=== PATIENT | female | born 1990 | race Hispanic/Latino ===

== ENCOUNTER 2019-08-06 21:32 | Day surgery (SDC) | payer OTHER ==
[2019-08-06 22:08] VITALS: BP 99/56; TEMP 99; BMI 23.8
--- NOTE | 2019-08-06 22:31 | PDOC.FPROB ---
FMR OB H&P: HPI - History of Present Illness Chief Complaint: cramping Indentification: 29 yo at 19.4 here for camping History of Present Illness: 29 yo at 19.4 weeks here for cramping starting two days ago. Was seen at [facility] in which she had VD, VP3 done showing +BV (called [facility] to confirm). She started taking flagyl but had cramping associated with it so stopped after two tabs. No VB, LOF. Still presistent yellow vaginal discharge. Also c/o dysuria but no fevers or chills. 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 - Surgical History Sx History: Left hand surgery - Social History Social History: Denies TAD - Family History Family History: Non contributory FMR OB H&P: Medications - Current Home Medications: Medication Instructions Recorded Confirmed Type metroNIDAZOLE [Metronidazole] 08/06/19 History Allergies/Adverse Reactions: Allergies Allergy/AdvReac Type Severity Reaction Status Date / Time No Known Allergies Allergy Verified 08/06/19 22:08 FMR OB H&P: ROS - Review of Systems General: denies: fever/chills, weight/appetite/sleep changes ENT: denies: ear pain, ringing in ears Cardiovascular: denies: chest pain Gastrointestinal: reports: abdominal pain, cramping. denies: nausea, vomiting, diarrhea, constipation, bright red blood, dark black tarry stools Genitourinary (Female): reports: vaginal discharge. denies: vaginal pain, vaginal bleeding, contractions, vaginal pressure Musculoskeletal: denies: pain, stiffness Neurologic: denies: numbness, weakness Endocrine: denies: cold intolerance, heat intolerance Hematologic/Lymphatic: denies: prolonged or excessive bleeding Psychological: denies: depression, anxiety FMR OB H&P: Vital Signs - Maternal Vital signs: Vital Signs - First Documented Temp Pulse Resp BP Pulse Ox 99.0 F 60 12 99/56 L 100 08/06/19 22:05 08/06/19 22:05 08/06/19 22:05 08/06/19 22:05 08/06/19 22:05 FMR OB H&P: Physical Exam - Physical Exam General: NAD, awake, alert and oriented HEENT: normocephalic and atraumatic, PERRLA Neck: supple, trachea midline Heart: RRR, normal S1/S2, no murmurs/rubs/gallops General: CTAB, no respiratory distress, good air movement Abdomen: soft Deviation from normal: suprapubic tenderness to palpation Musculoskeletal: pulses present, FROM in all four extremities Skin: good tugor, capillary refill <2 seconds Psychiatric: good judgement and insight, normal mood and affect FMR OB H&P: A/P - Problem List (1) with 19 completed weeks gestation Current Visit: Yes Status: Acute Code(s): Z3A.19 - 19 WEEKS GESTATION OF (2) Bacterial vaginitis Current Visit: Yes Status: Acute Code(s): N76.0 - ACUTE VAGINITIS; B96.89 - OTH BACTERIAL AGENTS THE CAUSE OF DISEASES CLASSD [id number] Discussion: Date/Time: 08/06/190 1. at 19.4 weeks gestation -FHT 150s -Transabdominal U/S to assess cervical length -Will continue tx of BV, can consider switch to clindamycin - 2. Bacterial Vaginitis -+BV per [facility] labs on 08/04/19, pending fax records -Continue flagyl tx to completion with MANPREET outpt 3. Dysuria -UA to r/o UTI This H&P was discussed with Dr. Brady who agree with the above documentation and plan.
[2019-08-06 22:53] LABS: Bacteria/HPF None Seen HPF (None Seen); Bilirubin Negative (Negative); Blood, Urine Trace (Negative); Clarity Clear (Clear); Glucose, Urine (Dipstick) Normal (Negative); Leukocyte Negative Leu/uL (Negative); Mucous/LPF 2+ LPF (<2+); Nitrite Negative (Negative); Protein, Urine (Dipstick) Negative (Neg-Trace); RBC/HPF 0-3 HPF (0-3); Squamous Epithelial 0-3 HPF (0-3); Urobilinogen Normal mg/dL (Less than 2); WBC/HPF 0-3 HPF (0-3)
[2019-08-06 22:54] LABS: Urine Culture Reflex No No
--- NOTE | 2019-08-06 22:55 | PDOC.BPN ---
- Brief Progress Note Cervical length 5.26cm Discharge white, serous, fish smell -noted on exam UA neg for infection Discussed that cramping likely from BV, had only taken one day of medication, needs more time to work. After discussion would prefer to try different medication. Sent for clindamycin, discussed possible AE. Discussed warning precautions and following up at [facility] next week. Sent medication, no further questions
--- NOTE | 2019-08-06 23:14 | ULT ---
TRANSABDOMINAL PELVIC ULTRASOUND, LIMITED: 08/06/19 HISTORY: Cervical length. Abdominal cramping at 19 weeks. FINDINGS/IMPRESSION: A single live intrauterine gestation is seen with a heart rate of 145 beats per minute. The cer vical length measures 5.3 cm. POS: OFF
== END 2019-08-06 23:15 | disposition home or self-care (01) ==
LOC: L&D/OP 21:32
PROVIDERS: ATTEND Obstetrics & Gynecology
DX: O23.592 Infection of other part of genital tract in pregnancy, second trimester (principal); N76.0 Acute vaginitis; B96.89 Other specified bacterial agents as the cause of diseases classified elsewhere; Z3A.19 19 weeks gestation of pregnancy
CPT/HCPCS: 76815; 81001

== ENCOUNTER 2019-12-22 10:17 | Outpatient (CLI) | payer OTHER ==
[2019-12-23 12:11] LABS: SARS-CoV-2 MS2 Positive; SARS-CoV-2 N Gene Positive; SARS-CoV-2 S Gene Positive; SARS-CoV-2 orf1ab Positive
== END 2019-12-22 10:18 | disposition home or self-care (01) ==
LOC: SCSLAB 10:17
PROVIDERS: ATTEND Emergency Medicine
DX: Z01.812 Encounter for preprocedural laboratory examination (principal); Z11.59 Encounter for screening for other viral diseases
CPT/HCPCS: 87635; U0003

== ENCOUNTER 2019-12-30 15:43 | Inpatient (IN) | payer SELFPAY, OTHER ==
[2019-12-30 16:31] VITALS: BMI 24.7
[2019-12-30] MEDS ORDERED: Promethazine HCl 25 MG/ML VIAL IM PRN (17:59)
[2019-12-30] MEDS ORDERED: Diphenoxylate HCl/Atropine Tablet PO PRN ×2 (17:59)
[2019-12-30] MEDS ORDERED: Lidocaine 1% (PF) 30 ML VIAL SC PRN (17:59)
[2019-12-30] MEDS ORDERED: Acetaminophen 500 MG TAB PO PRN (17:59)
[2019-12-30] MEDS ORDERED: Misoprostol 200 MCG TAB PR PRN (17:59)
[2019-12-30] MEDS ORDERED: hydrALAZINE 20 MG/ML VIAL SLOW IVP PRN (17:59)
[2019-12-30] MEDS ORDERED: Methylergonovine 0.2 MG/ML VIAL IM PRN (17:59)
[2019-12-30] MEDS ORDERED: Butorphanol Tartrate 1 MG/ML VIAL SLOW IVP PRN (17:59)
[2019-12-30] MEDS ORDERED: Ibuprofen 800 MG TAB PO PRN (17:59)
[2019-12-30] MEDS ORDERED: Carboprost 250 MCG/ML AMP IM PRN (17:59)
--- NOTE | 2019-12-30 18:27 | PDOC.FPROB ---
FMR OB H&P: HPI - History of Present Illness Chief Complaint: Contractions History of Present Illness: Patient is a 29 year old at 40.3 WGA by LMP confirmed by 8.3 week sonogram with an KRISTIE of 12/27/2019. Patient was schedule for eIOL on 12/31/2019 but presented with contractions every 5 minutes in triage. She reported scant vaginal bleeding and + movement but no leakage of fluid or abnormal vaginal discharge. She was found to be 4/60/-2 with intact membranes. This has been complicated by anemia of and BV/yeast infection s/ p treatment. Patient is COVID positive. Patient reports cough and SOB 2 weeks ago but states she has been symptom free for 1 week. There was adequate care at clinic. Primary Care Physician: KARL Guo FMR OB H&P: Current - Care : 3 Para: 1 Gestational age: 40.3 Due date: 12/27/2019 Dating Criteria: LMP, confirmed by 8.3 sono Total weight gain: Unknown Course/Complications: Anemia of , BV/yeast s/p treatment, COVID positive - OB Labs Blood type: O RH: positive Antibody Screen: negative HIV: negative RPR: negative HepBsAg: negative Rubella: immune Quad screen: negative Urine drug screen: not done Gonorrhea: negative Chlamydia: negative Pap Smear: Negative 1 hour gtt: 97 FMR OB H&P: History - Past Medical History PMH: Childhood asthma. GERD. - OB History OB History: . Hx SAB at 6 weeks. Previous vaginal delivery at term with second degree lac. 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 [place] at 16 years old. Menstruation Q24 days, lasts 4 days. No history of STIs. - Surgical History Sx History: None - Social History Social History: No tobacco or ETOH use. - Family History Family History: No significant FH. FMR OB H&P: Medications - Current Home Medications: Medication Instructions Recorded Confirmed Type 105/Iron/Folic AC/Dha 1 tab PO DAILY 12/30/19 12/30/19 History [Prena1 True Combo Pack] Allergies/Adverse Reactions: Allergies Allergy/AdvReac Type Severity Reaction Status Date / Time No Known Allergies Allergy Verified 12/30/19 16:22 FMR OB H&P: ROS - Review of Systems General: denies: fever/chills, night sweats, fatigue Eyes: denies: eye pain, vision changes ENT: denies: nasal congestion, rhinorrhea, sore throat Cardiovascular: denies: chest pain, palpitation Respiratory: denies: cough, congestion, shortness of breath Gastrointestinal: reports: abdominal pain (with contractions). denies: nausea, vomiting Genitourinary (Female): reports: vaginal bleeding (- scant), contractions. denies: dysuria, hematuria, vaginal discharge Musculoskeletal: denies: pain, redness Neurologic: denies: numbness, syncope, headache Integumentary: denies: itching, rash Breast: denies: lumps, bumps Endocrine: denies: cold intolerance, heat intolerance Hematologic/Lymphatic: denies: prolonged or excessive bleeding, enlarged lymph nodes Psychological: denies: depression, anxiety FMR OB H&P: Vital Signs - Maternal Vital signs: Vital Signs - First Documented Temp Pulse Resp BP Pulse Ox 98.4 F 65 18 108/64 100 12/30/19 16:21 12/30/19 16:21 12/30/19 16:21 12/30/19 16:21 12/30/19 16:21 - Heart Tones Baseline: 130 Variability: moderate Acceleration: present Deceleration: absent Category: category 1 [place] contractions every: 5 minutes FMR OB H&P: Physical Exam - Physical Exam General: NAD HEENT: normocephalic and atraumatic, PERRLA Neck: supple, trachea midline Chest: non-tender to palpation, no lesions Abdomen: gravid, non-tender Musculoskeletal: FROM in all four extremities, no misalignment/asymmetry Neurological: cranial nerves II through XII intact, sensation to pain,touch and proprioception grossly normal Skin: no rash, good tugor Lymphatic: no unusual bruising or bleeding, no purpura Psychiatric: good judgement and insight, normal mood and affect - Pelvic Exam SVE: /-2 Membranes: Intact Presentation: Vertex FMR OB H&P: A/P - Problem List (1) Anemia in preg-unspec Current Visit: Yes Status: Acute Code(s): O99.019 - ANEMIA COMPLICATING , UNSPECIFIED TRIMESTER (2) GERD (gastroesophageal reflux disease) Current Visit: Yes Status: Acute Code(s): K21.9 - GASTRO-ESOPHAGEAL REFLUX DISEASE WITHOUT ESOPHAGITIS (3) Asthma Current Visit: Yes Status: Acute Code(s): J45.909 - UNSPECIFIED ASTHMA, UNCOMPLICATED (4) Current Visit: Yes Status: Acute (5) COVID-19 Current Visit: Yes Status: Acute Code(s): U07.1 - COVID-19 Disposition: 1. [place] intrauterine . GBS negative. Cervical check: /-2. Contractions every 5 minutes. Category 1 strip. Currently in latent labor. -Continue monitoring -Check for progression in 4 hours -No intervention at this time 2. COVID positive Patient is asymptomatic. Afebrile. -Respiratory precautions in place 3. Anemia of H/H was 11.9/33.6. Patient takes vitamin daily. -Stable 4. GERD Patient reports no symptoms. No medication taken routinely. -Stable 5. Childhood asthma Patient denies SOB or wheezing. She does not use an inhaler. -Stable Discussion: Date/Time: 12/30/191822 This H&P was discussed with [Baron Dalton] and [Layton Mendosa] who agree with the above documentation and plan. I, Baron Dalton DO, have examined the pt and agree with the above history and plan as outlined by the accounting intern resident. Addendum - Attending - Attending Attestation Date/Time: 12/30/192306 I personally evaluated the patient and discussed the management with Dr. Márquez/Sha I agree with the History, Examination, Assessment and Plan documented above with any addition or exceptions noted below. COVID screen + presents in labor. GBS negative. Contact/respiratory precautions in place. Continue expectant management.
[2019-12-30 18:49] LABS: Hemoglobin 12.1 g/dL (12.0-16.0); Mean Corpuscular HGB CONC 34.7 g/dL (32.0-36.0); Mean Corpuscular Hemoglobin 31.2 pg (27.0-31.0); Mean Corpuscular Volume 89.8 fL (78.0-98.0); Mean Platelet Volume 7.9 fL (7.4-10.4); Platelet Count 232 thou/uL (130-400); RBC Distribution Width 12.1 % (11.5-14.5); Red Blood Cell (RBC) Count 3.87 mill/uL (4.20-5.40); White Blood Cell (WBC) Count 9.7 thou/uL (4.8-10.8)
[2019-12-30 19:26] LABS: HBSAg Index 0.17 S/CO (0-0.99); Hep B Surf Ag Non-Reactive S/CO (NonReactive); Syphilis Antibody Nonreactive (Nonreactive); Syphilis Antibody Index 0.03 S/CO (<1.00 Non-Reactive)
[2019-12-30] MEDS ORDERED: Fentanyl 4 mcg/Bup 0.1% Cadd 100 ML ONE (20:52)
[2019-12-30] MEDS: Lactated Ringer's 1,000 ML IV SCH (21:09)
--- NOTE | 2019-12-30 21:58 | PDOC.LDPN ---
Labor & Delivery Progress Note - Subjective Subjective: painful contractions - Objective Vital signs reviewed and normal: yes General: NAD Dilation: 6/60% Station: -2 FHT: category 1 [place] contractions every: 4-5 Procedures: epidural - Assessment (1) Anemia in preg-unspec Code(s): O99.019 - ANEMIA COMPLICATING , UNSPECIFIED TRIMESTER Current Visit: Yes Status: Acute (2) GERD (gastroesophageal reflux disease) Code(s): K21.9 - GASTRO-ESOPHAGEAL REFLUX DISEASE WITHOUT ESOPHAGITIS Current Visit: Yes Status: Acute (3) Asthma Code(s): J45.909 - UNSPECIFIED ASTHMA, UNCOMPLICATED Current Visit: Yes Status: Acute (4) Current Visit: Yes Status: Acute (5) COVID-19 Code(s): U07.1 - COVID-19 Current Visit: Yes Status: Acute Plan: continue plan of care -: sIUP - GBS-, covid+, BPs wnl - making change, cont. plan of care - continuous monitoring
[2019-12-31] MEDS: Lactated Ringer's 1,000 ML IV SCH ×2 (00:29→06:01)
--- NOTE | 2019-12-31 02:20 | PDOC.LDPN ---
Labor & Delivery Progress Note - Subjective Subjective: comfortable - Objective Vital signs reviewed and normal: yes General: NAD Dilation: 7 Effacement: 75% Station: -1 FHT: category 1 [place] contractions every: 5 mins - Assessment (1) Anemia in preg-unspec Code(s): O99.019 - ANEMIA COMPLICATING , UNSPECIFIED TRIMESTER Current Visit: Yes Status: Acute (2) GERD (gastroesophageal reflux disease) Code(s): K21.9 - GASTRO-ESOPHAGEAL REFLUX DISEASE WITHOUT ESOPHAGITIS Current Visit: Yes Status: Acute (3) Asthma Code(s): J45.909 - UNSPECIFIED ASTHMA, UNCOMPLICATED Current Visit: Yes Status: Acute (4) Current Visit: Yes Status: Acute (5) COVID-19 Code(s): U07.1 - COVID-19 Current Visit: Yes Status: Acute Plan: continue plan of care -: sIUP - GBS-, covid+, BPs wnl - making change, cont. plan of care - continuous monitoring
[2019-12-31] MEDS: Ondansetron PF 4 MG/2 ML Vial IVP PRN ×2 (02:55→08:03)
[2019-12-31] MEDS ORDERED: Fentanyl 4 mcg/Bup 0.1% Cadd 100 ML ONE ×2 (05:48→13:06)
[2019-12-31] MEDS ORDERED: NS / Oxytocin 40 units/1000ml 1,000 ML ONE (06:39)
[2019-12-31] MEDS ORDERED: Lidocaine 1% (PF) 30 ML VIAL ONE (06:39)
[2019-12-31] MEDS ORDERED: NS w/ Oxytocin 10 units 500 ML ONE (08:39)
--- NOTE | 2019-12-31 08:59 | PDOC.LDPN ---
Labor & Delivery Progress Note - Subjective Subjective: comfortable, no concerns - Objective Vital signs reviewed and normal: yes General: NAD, resting Uterine fundus: non tender SVE: /-1 FHT: category 1 (accels, no deccels, baseline 130) [place] contractions every: 3-4 AROM: clear fluid IUPC placed: yes - Assessment (1) COVID-19 Code(s): U07.1 - COVID-19 Current Visit: Yes Status: Acute (2) Current Visit: Yes Status: Acute Qualifiers: Weeks of gestation: 40 weeks Qualified Code(s): Z3A.40 - 40 weeks gestation of Plan: continue plan of care, pitocin for augmentation -: 29yo @ 40.4wks by LMP c/w 8.3wk sono presented in labor. COVID-19 Positive. #SIUP, active labor - SVE @ 0830 - AROM with clear fluid, IUPC placed - no change since 0600 - will start pit for augmentation and titrate for adequate contractions - Cat 1 strip - cont monitoring and recheck in 2 hours - GBS negative #COVID-19 Positive - asymptomatic - droplet precautions - monitor #h/o childhood asthma - consider methergen over hemabate if needed IVF: LR @ 125cc/hr Diet: Ice chips PCP: [facility] Dispo: AROM, IUPC placed. Start pit. Monitor and titrate as needed. Addendum - Attending - Attending Attestation Date/Time: 12/31/19 6103 Discussed with the team and strip reviewed. Exam by multiple personnel minimized 2/2 covid status.
--- NOTE | 2019-12-31 11:49 | PDOC.LDPN ---
Labor & Delivery Progress Note - Subjective Subjective: comfortable, vaginal pressure, no concerns - Objective Vital signs reviewed and normal: yes General: NAD, resting, breathing through contractions Uterine fundus: non tender SVE: 100/0 FHT: category 1 (accels, baseline 130), early decelerations (occasional), variability present [place] contractions every: 2-3min - Assessment (1) COVID-19 Code(s): U07.1 - COVID-19 Current Visit: Yes Status: Acute (2) Current Visit: Yes Status: Acute Qualifiers: Weeks of gestation: 40 weeks Qualified Code(s): Z3A.40 - 40 weeks gestation of Plan: pitocin for augmentation -: 29yo @ 40.4wks by LMP c/w 8.3wk sono presented in labor. COVID-19 Positive. #SIUP, active labor - SVE 7/80/-1 @ 0830 - AROM with clear fluid, IUPC placed, pit started - SVE 8/100/0 @ 1000 - cont pit - SVE 9/100/0 @ 1145 - cont pit - Cat 1 strip - cont monitoring, anticipate delivery within next hour - GBS negative #COVID-19 Positive - asymptomatic - droplet precautions - monitor #h/o childhood asthma - consider methergen over hemabate if needed IVF: LR @ 125cc/hr Diet: Ice chips PCP: [facility] Dispo: AROM with fluid fluid, IUPC placed. On pit. Monitor and anticipate . Addendum - Attending - Attending Attestation Date/Time: 12/31/19 1455 Discussed with the team and strip reviewed. Exam by multiple personnel minimized 2/2 covid status. Continue current management. Anticipate .
[2019-12-31] MEDS: NS / Oxytocin 40 units/1000ml 1,000 ML IV PRN ×2 (14:10→16:48)
--- NOTE | 2019-12-31 15:06 | PDOC.OPDEL ---
OB Operative/Delivery Note Delivery Dr/Surgeon: Edward Pre-Delivery Diagnosis: other (COVID+ mother) Procedure/Post Delivery Dx: other (COVID + mother) Anesthesia: epidural - Additional Findings/Plan Placenta delivered: spontaneous Repaired Obstetrical Laceration: other (small right labial, repaired with 3- vicryl in the usual fashion) Estimated blood loss: 200 Compilations/Other Findings: ->2 s/p to viable male , AG pending. delivered over an intact perineum in the OA position with no nuchal cord. Cried spontaneously and was placed on maternal abdomen, but subsequently became apneic and cord was clamped, cut, and was taken to warmer with awaiting attendants. A cord segment was taken and gases obtained. Cord blood was sampled. Placenta delivered spontaneously with CCT. Uterus firmed with massage and IV pitocin. Small first degree perineal, well approximated and hemostatic noted. Gaping right perilabial noted to be bleeding and repaired in the usual fashion with 3- 0 vicryl with good hemostasis. Counts correct. Mom to PP. to NICU. Post delivery plan: routine recovery
[2019-12-31 15:09] LABS: Actual Bicarbonate (HCO3a) 23.9 mEq/L (22-28); Actual Bicarbonate (HCO3v) 21 mEq/L (22-28); Base Excess -6.2 mEq/L (-2.0 to +3.0); Base Excess (BEa) -5.7 mEq/L (-2.0 to +3.0)
[2019-12-31 15:10] LABS: pH (Cord, venous) 7.24 (7.32-7.43)
[2019-12-31] MEDS ORDERED: Benzocaine-Menthol 82.5 ML CAN TOP PRN (16:28)
[2019-12-31] MEDS ORDERED: NS / Oxytocin 40 units/1000ml 1,000 ML IV SCH (16:28)
[2019-12-31] MEDS ORDERED: Lanolin Ointment 7 GM TUBE TOP PRN (16:28)
[2019-12-31] MEDS ORDERED: Milk Of Magnesia 30 ML UDCUP PO PRN (16:28)
[2019-12-31] MEDS ORDERED: Bisacodyl 10 MG SUPP PR PRN (16:28)
[2020-01-01] MEDS: Ibuprofen 800 MG TAB PO SCH ×2 (00:46→08:15)
--- NOTE | 2020-01-01 05:45 | PDOC.OBPPN ---
FMR OB PN: Subj - Interval History Hospital Day: 2 Day: 1 Chief Complaint: none Indentification: 29YO G3 now P2012 Interval History: Stable since transfer to . FMR OB PN: Obj - Maternal Vital signs: BP: 99/54 HR: 64 RR: 16 Tmax: 98.2F Pox: 96% on RA Wt: 61 kg - Urine output I&O: 12/30/19 12/31/19 01/01/20 06:59 06:59 06:59 Output Total 228 Balance -228 - Lochia Lochia: minimal - Pain Management Pain scale: 0 Intervention: oral medication FMR OB PN: Exam - Physical Exam General: NAD, awake, alert and oriented HEENT: normocephalic and atraumatic, MMM, grossly normal vision, grossly normal hearing Neck: supple, FROM Heart: RRR, normal S1/S2, no edema General: CTAB, no respiratory distress, good air movement, no rales/rhonchi, no wheezing, no retractions Abdomen: soft, fundus(cm) (firm just above umbilicus) Musculoskeletal: FROM in all four extremities Neurological: cranial nerves II through XII intact, sensation to pain,touch and proprioception grossly normal, no focal deficit Skin: no rash : appropriately tender Lymphatic: no unusual bruising or bleeding Psychiatric: intact recent and remote memory, good judgement and insight, normal mood and affect - Pelvic Exam : perineal incision/laceration healing well, sutures intact, no discharge, normal lochia, other (mild edema) FMR OB PN: Data - Labs Lab results: Laboratory Results - last 24 hr 12/31/19 12/31/19 14:15 14:15 Bicarbonate Actual 23.9 ABG Base Excess -5.7 L VBG HCO3 21 L VBG Base Excess -6.2 L Cord ABG pH 7.185 L* Cord ABG PCO2 (Ba) 64.8 H* Cord VBG pH 7.24 L* Cord VBG pCO2 50.7 FMR OB PN: A/P - Problem List (1) care following vaginal delivery Status: Acute Code(s): Z39.2 - ENCOUNTER FOR ROUTINE FOLLOW-UP (2) Anemia in preg-unspec Status: Acute Code(s): O99.019 - ANEMIA COMPLICATING , UNSPECIFIED TRIMESTER (3) Asthma Status: Acute Code(s): J45.909 - UNSPECIFIED ASTHMA, UNCOMPLICATED (4) COVID-19 Status: Acute Code(s): U07.1 - COVID-19 (5) GERD (gastroesophageal reflux disease) Status: Acute Code(s): K21.9 - GASTRO-ESOPHAGEAL REFLUX DISEASE WITHOUT ESOPHAGITIS Disposition: 29YO G3 now P2012 who is PP day #1 s/p w/ R periurethral tear s/p repair who is + for COVID-19. #PP day #1 s/p w/ periurethral lac s/p repair: Ambulating, tolerating PO, & voiding normally. Minimal lochia & pain well controlled with PO meds. Not yet passing gas & no BM. Lac intact w/o evidence of hematoma or infection. Continue routine PP care. #COVID-19 infection: Continue supportive care PRN. #Anemia in : H/H WNLs on admission w/ QBL of 228 since delivery. Continue PNVs. #GERD: Continue PRN meds. #asthma: In childhood, will avoid hemabate use Dispo: Continue routine PP care w/ possible d/c home vs. B&B later today. Discussion: Date/Time: 01/01/20 5911 This H&P was discussed with Dr. Biswas who agrees with the above documentation and plan. Addendum - Attending - Attending Attestation Date/Time: 01/01/20 3986 I personally evaluated the patient and discussed the management with Dr. Flores I agree with the History, Examination, Assessment and Plan documented above with any addition or exceptions noted below. PPD#1 Patient doing well. Meeting milestones. VSS. Afebrile. Nontender uterus. Lochia minimal. Remains asymptomatic in regards to COVID19. Request early d/c to help take care of other children at home. Current in NICU. Follow up for pp visit in 2 wks. No prior history of pp depression. Radha
[2020-01-01] MEDS ORDERED: Calcium Carbonate 500 MG ChewTAB PO PRN (05:52)
[2020-01-01] MEDS ORDERED: Acetaminophen 500 MG TAB PO PRN (05:53)
[2020-01-01] MEDS: Ferrous Sulfate 325 MG TAB PO SCH ×2 (07:09→08:16)
[2020-01-01] MEDS: Docusate Calcium (SURFAK) 240 MG CAP PO SCH (08:15)
[2020-01-01] MEDS ORDERED: Prenatal Vitamin 1 TAB PO SCH (09:00)
[2020-01-01] MEDS ORDERED: Ibuprofen 800 MG TAB PO PRN (10:51)
[2020-01-01 11:58] VITALS: TEMP 98.5
[2020-01-01 12:00] VITALS: BP 108/58
[2020-01-01] MEDS: Lactated Ringer's 1,000 ML IV SCH (12:12)
== END 2020-01-01 14:30 | disposition home or self-care (01) | DRG 805 ==
LOC: L&D/OP 15:43 → L&D 18:00 → 3SW 12-31 20:58
PROVIDERS: ADMIT Obstetrics & Gynecology; ATTEND Obstetrics & Gynecology
PROC: 10E0XZZ Delivery of Products of Conception, External Approach (ICD-10-PCS; principal; 2019-12-31)
PROC: 0UQMXZZ Repair Vulva, External Approach (ICD-10-PCS; 2019-12-31)
DX: O98.52 Other viral diseases complicating childbirth (principal); U07.1 COVID-19; Z37.0 Single live birth; O99.02 Anemia complicating childbirth; Z3A.40 40 weeks gestation of pregnancy; D64.9 Anemia, unspecified; O99.62 Diseases of the digestive system complicating childbirth; K21.9 Gastro-esophageal reflux disease without esophagitis
CPT/HCPCS: 36415; 51702; 82805; 85027; 86780; 86850; 86900; 86901; 87340; 99285; J2001; J2405; J2590